=== PATIENT | male | born 1960 | race Caucasian/White ===

== ENCOUNTER 2018-08-09 10:44 | Observation (INO) | payer OTHER ==
[2018-08-09] MEDS ORDERED: CYCLOBENZAPRINE HCL 10 MG TAB PO ONE (11:04)
[2018-08-09] MEDS ORDERED: KETOROLAC TROMETHAMINE INJ 60 MG/2 ML VIAL IM ONE (11:04)
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
--- NOTE | 2018-08-09 14:06 | RAD ---
Procedure: XR CHEST 1 VIEW Exam Date: 08/09/2018 Ordering Provider: ANGELO BASS Clinical Indication: short term follow up for pneumothorax, asymptomati Comparison: 08/09/2018 CT chest Findings: Cardiomediastinal silhouette is within normal limits. No focal lung consolidation. No pleural effusion. Left-sided pneumothorax noted on comparison CT is not definitely visualized. Multiple nondisplaced left-sided rib fractures redemonstrated. Impression: 1. Left-sided pneumothorax noted on comparison CT is not definitely visualized. 2. Multiple nondisplaced left-sided rib fractures. Electronically signed by: Boby Cormier MD 08/09/2018 2:04 PM CDT
[2018-08-09] MEDS ORDERED: CHLORHEXIDINE GLUCONATE 4 % 15 ML UD TOP ONE (14:13)
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
[2018-08-09] MEDS ORDERED: SODIUM CHLORIDE 0.9% (FLUSH) 10 ML SYG IV PRN (17:12)
[2018-08-09] MEDS ORDERED: ACETAMINOPHEN 325 MG TAB PO PRN (17:17)
[2018-08-09] MEDS ORDERED: MORPHINE SULFATE INJ 10 MG/ML VIAL IV PRN (17:17)
[2018-08-09] MEDS ORDERED: TEMAZEPAM 15 MG CAP PO PRN (17:17)
[2018-08-09] MEDS ORDERED: ALBUTEROL SULFATE 2.5 MG/3 ML VIAL NEB PRN (17:17)
[2018-08-09] MEDS ORDERED: ONDANSETRON INJ 4 MG/2 ML VIAL IV PRN (17:17)
[2018-08-09] MEDS ORDERED: tiZANidine 4 MG TAB PO ONE (17:23)
[2018-08-09] MEDS ORDERED: IV SET AND CAP CHANGE INJ INJ SCH (17:30)
[2018-08-09] MEDS: KETOROLAC TROMETHAMINE INJ 30 MG/ML VIAL IV SCH ×2 (17:51→23:10)
[2018-08-09] MEDS ORDERED: SODIUM CHLORIDE 0.9% 1000ML 1,000 ML ONE (18:11)
[2018-08-09] MEDS ORDERED: ENOXAPARIN SODIUM 40 MG/0.4 ML SYG SUBCU SCH (21:00)
[2018-08-09] MEDS: HYDROcodone 5MG/APAP 325MG 1 EA TAB PO PRN (23:23)
[2018-08-10] MEDS: KETOROLAC TROMETHAMINE INJ 30 MG/ML VIAL IV SCH (05:46)
[2018-08-10] MEDS: HYDROcodone 5MG/APAP 325MG 1 EA TAB PO PRN (05:58)
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
[2018-08-10 09:49] VITALS: BP 149/68; TEMP 98.5; O2SAT 95
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
== END 2018-08-10 12:45 | disposition home or self-care (01) ==
LOC: ER 10:44 → OBSVTOIN 15:33 → MS 15:33 → INTOOBSV 15:33
PROVIDERS: ADMIT Family Medicine; ATTEND Family Medicine
DX: S27.0XXA Traumatic pneumothorax, initial encounter (principal); S22.42XA Multiple fractures of ribs, left side, initial encounter for closed fracture; S51.012A Laceration without foreign body of left elbow, initial encounter; F17.220 Nicotine dependence, chewing tobacco, uncomplicated; F10.10 Alcohol abuse, uncomplicated; R41.0 Disorientation, unspecified; M48.02 Spinal stenosis, cervical region; V53.5XXA Driver of pick-up truck or van injured in collision with car, pick-up truck or van in traffic accident, initial encounter; Y92.414 Local residential or business street as the place of occurrence of the external cause; Y93.89 Activity, other specified
CPT/HCPCS: 96374; 96376 ×2; 96372; J1885 ×4; J7030; J1650; 80053; 36415; 81001; 85025; 83690; 71045; 71046; 73070; 70450; 72125; 71250; 74176; 94760; 94762 ×2; 99285; 93005; G0378